=== PATIENT | female | born 1990 | race Caucasian/White ===

== ENCOUNTER 2016-12-13 23:52 | Emergency (ER) | payer OTHER ==
--- NOTE | ~2016-12-13 | CR20 ---
[facility] A Service of [facility] RADIOLOGY TEXT RESULTS PATIENT: YVROSE JONES LOCATION: [facility]MI : [birth year] UNIT #: [id number] AGE: [address]: Swetha Donahue APRN SEX: F ORDER DR: [id number] [facility] [address] [place] [place], [place] [address] [id number] E MR#: [id number] Acc #: [id number] NAME: YVROSE JONES : 1990 SEX: F STUDY DATE/TIME: 12/14/2016 18:50 UNIT: [facility] ROOM: STUDY DESCRIPTION: CR Ankle Min 3 Views Lt Attending Physician: Swetha Donahue A.P.R.N. Ordering Physician: Swetha Donahue A.P.R.N. Primary Care Physician: Anthony Rhodes M.D. MEDICAL IMAGING REPORT This report is preliminary unless electronic signature is present EXAM Left ankle, 12/14/2016 at 0027. HISTORY Twisting injury today with subsequent pain in the ankle. FINDINGS AP, lateral, and oblique projections of the ankle show satisfactory integrity of the joint mortise with a smooth articular surface. There is no identifiable fracture, dislocation, or radiopaque foreign body. IMPRESSION Normal ankle. Dictated by... Tomas Santiago Jr., M.D. THIS IS AN ELECTRONICALLY VERIFIED REPORT Tomas Santiago Jr., M.D. at 12/14/2016 12:36 PM LEATHA/shruthi TD: 12/14/2016 09:22 JOB #: [id number] MEDICAL IMAGING REPORT Page 1 of 1 COPY
[~2016-12-13 23:52] MED LIST: ANUSOL-HC CREAM30 G1 EXT; BACTRIM DS TABL1 TA1 PO; BACTRIM DS TABL1 TAB PO; BACTROBAN22 GM TP; COLACE PO; ELIMITE60 GM TOP; ERYTHROMYCIN; FLONASE 0.05% N16 G1; IRON1 TA1 PO; LOTRISONE CREAM45 GM TOP; NAPROSYN500 MG PO; NO MEDICATIONS; PHENERGAN PO; PHENERGAN25 M1 PO; PRENATAL1 TA1 PO; STOOL SOFTENER1 EAC1 PO; SUDAFED PO; VISTARIL PO; VOLTAREN75 MG PO
== END 2016-12-14 01:50 | disposition home or self-care (01) ==
LOC: CFTX 23:52
DX: S93.402A Sprain of unspecified ligament of left ankle, initial encounter (principal); F17.210 Nicotine dependence, cigarettes, uncomplicated; Z79.899 Other long term (current) drug therapy; Z88.8 Allergy status to other drugs, medicaments and biological substances; X58.XXXA Exposure to other specified factors, initial encounter; Y93.01 Activity, walking, marching and hiking; Y92.89 Other specified places as the place of occurrence of the external cause
CPT/HCPCS: 29540; 73610; 84703; 96372; 99283; J1885